=== PATIENT | female | born 1965 | race Caucasian/White ===

== ENCOUNTER 2021-03-03 12:59 | Emergency (ER) | payer OTHER ==
[2021-03-03] MEDS ORDERED: MELOXICAM5 MG PO (15:51)
[2021-03-03] MEDS ORDERED: ROBAXIN 750 MG750 MG GT (15:51)
== END 2021-03-03 16:13 | disposition home or self-care (01) ==
LOC: ER1 12:59
DX: M54.2 Cervicalgia (principal); M79.601 Pain in right arm; M54.9 Dorsalgia, unspecified; W19.XXXA Unspecified fall, initial encounter
CPT/HCPCS: 72040; 72100; 72170; 73030; 73070; 73110; 96372; 99283; J1885